=== PATIENT | male | born 2000 | race Caucasian/White ===

== ENCOUNTER 2023-06-29 10:25 | Outpatient (OUT) | payer OTHER, SELFPAY ==
--- NOTE | 2023-06-29 10:33 | XR_ITS ---
The [address] [address] Patient Name: SEAN WHITE MRN: [id number] date: 2000 Sex: M Assigned Patient Location: RAD Current Patient Location: RAD Accession/Order Number: [id number] Exam Date: 06/29/2023 10:44 Report Date: 06/29/2023 13:50 At the request of: NERY STERLING Procedure: XR lumbar spine 2-3V EXAMINATION: XR lumbar spine 2-3V, XR sacrum coccyx min 2V HISTORY: Sacrococcygeal disorders M53.3 COMPARISON: No relevant comparison available. FINDINGS: BONES: 5 mm retrolisthesis of L5 on S1. No acute fracture. No significant degenerative change DISC SPACES: Normal. No significant disc height narrowing, subluxation, or endplate abnormality. PARASPINOUS: Negative. No paraspinous abnormality is seen. OTHER: Negative. XR/XR lumbar spine 2-3V IMPRESSION: 5 mm retrolisthesis of L5 on S1 Electronically authenticated by: AILEEN PARKINSON Date: 06/29/2023 13:50
--- NOTE | 2023-06-29 10:33 | XR_ITS ---
The [address] [address] Patient Name: SEAN WHITE MRN: [id number] date: 2000 Sex: M Assigned Patient Location: RAD Current Patient Location: RAD Accession/Order Number: [id number] Exam Date: 06/29/2023 10:44 Report Date: 06/29/2023 13:50 At the request of: NERY STERLING Procedure: XR sacrum coccyx min 2V EXAMINATION: XR lumbar spine 2-3V, XR sacrum coccyx min 2V HISTORY: Sacrococcygeal disorders M53.3 COMPARISON: No relevant comparison available. FINDINGS: BONES: 5 mm retrolisthesis of L5 on S1. No acute fracture. No significant degenerative change DISC SPACES: Normal. No significant disc height narrowing, subluxation, or endplate abnormality. PARASPINOUS: Negative. No paraspinous abnormality is seen. OTHER: Negative. XR/XR sacrum coccyx min 2V IMPRESSION: 5 mm retrolisthesis of L5 on S1 Electronically authenticated by: AILEEN PARKINSON Date: 06/29/2023 13:50
== END 2023-06-29 10:26 | disposition home or self-care (01) ==
LOC: RAD 10:28
PROVIDERS: PCP Family Medicine; Visit Provider Nurse Practitioner Family
DX: M53.3 Sacrococcygeal disorders, not elsewhere classified (principal)
CPT/HCPCS: 72100; 72220

== ENCOUNTER 2023-10-17 10:10 | Emergency (ER) | payer OTHER, SELFPAY ==
[2023-10-17 10:14] VITALS: BP 123/80; PULSE 61; RESP 18; TEMP 36.7; O2SAT 97; BMI 34.7
--- NOTE | 2023-10-17 10:26 | ECG_ITS ---
The 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
--- NOTE | 2023-10-17 10:26 | XR_ITS ---
The [address] [address] Patient Name: SEAN WHITE MRN: [id number] date: 2000 Sex: M Assigned Patient Location: ER Current Patient Location: ER Accession/Order Number: [id number] Exam Date: 10/17/2023 10:40 Report Date: 10/17/2023 10:55 At the request of: LESA CANO Procedure: XR chest 1V EXAM: XR chest 1V HISTORY: CP COMPARISON: None TECHNIQUE: AP view of the chest was obtained with portable technique at 1038 hours. FINDINGS: Heart and mediastinal contours are unremarkable in appearance. No acute infiltrate or consolidations are seen. No obvious pneumothorax. Bony structures appear grossly intact. XR/XR chest 1V IMPRESSION: No acute process seen in the chest. Electronically authenticated by: CODI CLARKE Date: 10/17/2023 10:55
--- NOTE | 2023-10-17 10:27 | ED_ITS ---
HPI - Chest Pain General Chief Complaint: Chest Pain Stated Complaint: CHEST PAIN Time Seen by Provider: 10/17/23 10:12 Source: patient Mode of arrival: walk-in History of Present Illness HPI narrative: 23-year-old male presents for chest pain. It started yesterday and has been intermittent. It last for a few seconds at a time and he points to his lower sternal area at the midline. It takes his breath away doesn't ever last for more than a few seconds. No abdominal pain and vomiting or fever. He is not short of breath and has no back pain. He's been on two new medications recently, Daypro and a muscle relaxant of which he cannot recall the name. Related Data Home Medications Medication Instructions Recorded Confirmed baclofen 20 mg tablet 40 mg PO DAILY 10/17/23 10/17/23 oxaprozin 600 mg tablet 1,200 mg PO DAILY 10/17/23 10/17/23 Allergies Allergy/AdvReac Type Severity Reaction Status Date / Time No Known Drug Allergies Allergy Verified 10/17/23 10:21 Review of Systems ROS Narrative A ten point review of systems is negative except as noted above. Musculoskeletal Reports: back pain Exam Narrative Exam Narrative: Nurses note and vital signs reviewed and patient is not hypoxic. General: The patient appears well and in no apparent distress. Patient is resting comfortably on cart. Skin: Warm, dry, no pallor noted. There is no rash noted. Head: Normocephalic, atraumatic Eye: Normal conjunctiva, no drainage Ears, Nose, Mouth, and Throat: oral mucosa is moist. Nares patent. Cardiovascular: Regular Rate and Rhythm Respiratory: Patient is in no distress, no accessory muscle use, lungs are clear to auscultation, no wheezing, rales or rhonchi Back: non-tender GI: no tenderness to palpation, no masses appreciated. No rebound, guarding, or rigidity noted. Musculoskeletal: The patient has no evidence of calf tenderness, no pitting edema, symmetrical pulses noted bilaterally Neurological: A&O, normal speech Psychiatric: Cooperative Constitutional Vital Signs, click to edit/add: Last Vital Signs Temp 98.0 F 10/17/23 10:14 Pulse 61 10/17/23 10:14 Resp 18 10/17/23 10:14 BP 123/80 10/17/23 10:14 Pulse Ox 97 10/17/23 10:14 O2 Del Method Room Air 10/17/23 10:14 Course Vital Signs Vital signs: Vital Signs Temperature 98.0 F 10/17/23 10:14 Pulse Rate 61 10/17/23 10:14 Respiratory Rate 18 10/17/23 10:14 Blood Pressure 123/80 10/17/23 10:14 Pulse Oximetry 97 10/17/23 10:14 Oxygen Delivery Method Room Air 10/17/23 10:14 Temperature 98.0 F 10/17/23 10:14 Pulse Rate 61 10/17/23 10:14 Respiratory Rate 18 10/17/23 10:14 Blood Pressure 123/80 10/17/23 10:14 Pulse Oximetry 97 10/17/23 10:14 Oxygen Delivery Method Room Air 10/17/23 10:14 MDM - Chest Pain MDM Narrative Medical decision making narrative: his entire workup here is negative. The possibility that this is being caused by his new medications was discussed with him and he'll follow-up with his doctor. Treatment diagnosis and follow-up were discussed with the patient. Differential Diagnosis Differential diagnosis: Likely pneumothorax, atypical chest pain, st elevation myocardial infarction, costochondritis and chest pain Lab Data Attestation: I reviewed the patient's lab results. Labs: Lab Results 10/17/23 Range/Units 10:34 WBC 6.2 (4.0-11.0) 10^3/uL RBC 5.76 (4.70-6.10) 10^6/uL Hgb 16.2 (14.0-18.0) g/dL Hct 48.9 (42.0-54.0) % MCV 84.9 (80.0-94.0) fL MCH 28.1 (25.9-34.0) pg MCHC 33.1 (29.9-35.2) g/dL RDW 12.0 (11.0-15.0) % Plt Count 199 (150-450) 10^3/uL MPV 10.9 (9.5-13.5) fL Neut % (Auto) 59.0 (43.0-75.0) % Lymph % (Auto) 34.4 (20.5-60.0) % [place] % (Auto) 5.3 (1.7-12.0) % Eos % (Auto) 1.0 (0.9-7.0) % Baso % (Auto) 0.3 (0.2-2.0) % Neut # (Auto) 3.6 (1.4-6.5) 10^3/uL Lymph # (Auto) 2.1 (1.2-3.8) 10^3/uL [place] # (Auto) 0.3 (0.3-0.8) 10^3/uL Eos # (Auto) 0.1 (0.0-0.7) 10^3/uL Baso # (Auto) 0.0 (0.0-0.1) 10^3/uL Abs Immat Gran (auto) 0.00 (0.00-0.03) 10^3/uL Imm/Tot Granulo (auto) 0.0 (0.0-0.5) % Sodium 141 (136-145) mmol/L Potassium 3.9 (3.5-5.1) mmol/L Chloride 103 (98-107) mmol/L Carbon Dioxide 26.4 (21.0-32.0) mmol/L Anion Gap 15.5 BUN 18.0 (7.0-18.0) mg/dL Creatinine 0.89 (0.70-1.30) mg/dL Est GFR ( Amer) >60 (>=60) Est GFR (Non-Af Amer) >60 (>=60) BUN/Creatinine Ratio 20.2 Glucose 102 (74-106) mg/dL Calcium 9.2 (8.5-10.1) mg/dL Total Bilirubin 0.6 (0.2-1.0) mg/dL Direct Bilirubin 0.1 (0.0-0.2) mg/dL AST 27 (15-37) U/L ALT 59 (16-63) U/L Alkaline Phosphatase 48 (46-116) U/L Troponin I High Sens 5.4 (4.0-76.1) pg/mL Total Protein 8.2 (6.4-8.2) g/dL Albumin 4.4 (3.4-5.0) g/dL Globulin 3.8 g/dL Albumin/Globulin Ratio 1.2 Amylase 41 (25-115) U/L Lipase 32.0 (16.0-77.0) U/L Imaging Data Chest x-ray: Radiologist's impression: Procedure: XR chest 1V EXAM: XR chest 1V HISTORY: CP COMPARISON: None TECHNIQUE: AP view of the chest was obtained with portable technique at 1038 hours. FINDINGS: Heart and mediastinal contours are unremarkable in appearance. No acute infiltrate or consolidations are seen. No obvious pneumothorax. Bony structures appear grossly intact. IMPRESSION: No acute process seen in the chest. Electronically authenticated by: CODI CLARKE Date: 10/17/2023 10:55 ECG Data Attestation: I personally reviewed and interpreted this ECG as follows: (EKG on my interpretation shows no acute findings, normal sinus rhythm, and a rate of 58.) Heart Score History: Slightly/Non-Suspicious ECG: Normal Age: <45 years Risk Factors: No Risk Factors Troponin: <Normal Limit Total Heart Score Recommendations & Risks:: 0 Discharge Plan Discharge Chief Complaint: Chest Pain Clinical Impression: Chest pain Patient Disposition: Home, Self-Care Time of Disposition Decision: 11:06 Condition: Good Mode of Transportation: Private Vehicle Prescriptions / Home Meds: No Action baclofen 20 mg tablet 40 mg PO DAILY oxaprozin 600 mg tablet 1,200 mg PO DAILY Instructions: Chest Pain (ED) Stand Alone Forms: Portal Instructions Referrals: Andrea Anthony MD [Primary Care Provider] - 1 week
[2023-10-17 10:40] LABS: Basophils Percent Auto 0.3 % (0.2-2.0); Eosinophils Absolute Auto 0.1 10^3/uL (0.0-0.7); Hematocrit 48.9 % (42.0-54.0); Hemoglobin 16.2 g/dL (14.0-18.0); Lymphocytes Absolute Auto 2.1 10^3/uL (1.2-3.8); Lymphocytes Percent Auto 34.4 % (20.5-60.0); Mean Corpuscular HGB Conc 33.1 g/dL (29.9-35.2); Mean Corpuscular Hemoglobin 28.1 pg (25.9-34.0); Mean Corpuscular Volume 84.9 fL (80.0-94.0); Mean Platelet Volume 10.9 fL (9.5-13.5); Monocytes Absolute Auto 0.3 10^3/uL (0.3-0.8); Monocytes Percent Auto 5.3 % (1.7-12.0); Neutrophils Absolute Auto 3.6 10^3/uL (1.4-6.5); Platelet Count 199 10^3/uL (150-450); Red Blood Count 5.76 10^6/uL (4.70-6.10); White Blood Count 6.2 10^3/uL (4.0-11.0)
[2023-10-17 10:50] LABS: Anion Gap 15.5; BUN Creatinine Ratio 20.2; Calcium 9.2 mg/dL (8.5-10.1); Carbon Dioxide 26.4 mmol/L (21.0-32.0); Chloride 103 mmol/L (98-107); Estimated GFR (African America >60 (>=60); Estimated GFR (Non-African Ame >60 (>=60); Glucose 102 mg/dL (74-106); Potassium 3.9 mmol/L (3.5-5.1); Sodium 141 mmol/L (136-145)
[2023-10-17 10:58] LABS: Alanine Aminotransferase 59 U/L (16-63); Albumin Globulin Ratio 1.2; Albumin Level 4.4 g/dL (3.4-5.0); Alkaline Phosphatase 48 U/L (46-116); Amylase 41 U/L (25-115); Aspartate Amino Transferase 27 U/L (15-37); Bilirubin Direct 0.1 mg/dL (0.0-0.2); Bilirubin Total 0.6 mg/dL (0.2-1.0); Globulin 3.8 g/dL; Total Protein 8.2 g/dL (6.4-8.2); Troponin I High Sensitivity 5.4 pg/mL (4.0-76.1)
== END 2023-10-17 11:15 | disposition home or self-care (01) ==
PROVIDERS: Emergency Provider Emergency Medicine; PCP Family Medicine
DX: R07.9 Chest pain, unspecified (principal)
CPT/HCPCS: 36415; 71045; 80048; 80076; 82150; 83690; 84484; 85025; 93005; 99285

== ENCOUNTER 2024-04-30 11:57 | Outpatient (OUT) | payer OTHER, SELFPAY ==
--- NOTE | 2024-04-30 12:04 | XR_ITS ---
[address] [address] Patient Name: SEAN WHITE MRN: [id number] date: 2000 Sex: M Assigned Patient Location: [facility] Current Patient Location: Accession/Order Number: [id number] Exam Date: 04/30/2024 12:07 Report Date: 05/01/2024 10:19 At the request of: OZZIE BURLESON Procedure: XR lumbar spine 2-3V EXAMINATION: XR lumbar spine 2-3V HISTORY: Lumbar Radiculopathy M54.16 COMPARISON: No relevant comparison available. FINDINGS: BONES: Mild left convex curvature lumbar spine and slight reversal of normal lordotic curvature. No fracture, spondylolisthesis, bone lesion. No significant facet arthropathy. DISC SPACES: Slight narrowing L4-5, L5-S1. PARASPINOUS: Negative. No paraspinous abnormality is seen. OTHER: Negative. XR/XR lumbar spine 2-3V IMPRESSION: 1. Mild degenerative disc disease of lower lumbar spine. 2. Abnormal curvature of lumbar spine of uncertain etiology; possibly due to muscle spasm. Electronically authenticated by: CHRISTY CRAWFORD Date: 05/01/2024 10:19
== END 2024-04-30 11:58 | disposition home or self-care (01) ==
LOC: RAD 12:00
PROVIDERS: PCP Family Medicine; Visit Provider Family Medicine
DX: M54.16 Radiculopathy, lumbar region (principal); M51.36 Other intervertebral disc degeneration, lumbar region
CPT/HCPCS: 72100

== ENCOUNTER 2025-03-24 15:55 | Emergency (ER) | payer SELFPAY ==
[2025-03-24 15:59] VITALS: BP 141/72; PULSE 81; TEMP 36.6; O2SAT 98; BMI 32.6
--- NOTE | 2025-03-24 16:20 | ED.GENADUL1 ---
HPI HPI - General Adult General Chief complaint: Abdominal Pain Stated complaint: PAIN IN STOMACH Time Seen by Provider: 03/24/25 16:10 Source: patient Mode of arrival: walk-in Limitations: no limitations History of Present Illness HPI narrative: 24-year-old male presents to the emergency department for epigastric and left upper quadrant pain. He has had it for 2 days. No injury or fever. No vomiting but has had some diarrhea without blood in it. He has never had pain like this before and he is worried about his gallbladder. The pain is mild to moderate. Related Data Home Medications ?Medication ?Instructions ?Recorded ?Confirmed omeprazole 40 mg capsule,delayed 40 mg PO DAILY 03/24/25 03/24/25 release Allergies Allergy/AdvReac Type Severity Reaction Status Date / Time No Known Drug Allergies Allergy Verified 10/17/23 10:21 Opioid HPI Opioid Management Most Recent Opioid Data: Last Pain Scale 9 Today, 16:41 Review of Systems ROS Narrative A ten point review of systems is negative except as noted above. PFSH PFSH Social History Little interest or pleasure in doing things: not at all Feeling down, depressed, or hopeless: not at all Exam Narrative Exam Narrative: Nurses note and vital signs reviewed and patient is not hypoxic. General: The patient appears well and in no apparent distress. Patient is resting comfortably on cart. Skin: Warm, dry, no pallor noted. There is no rash noted. Head: Normocephalic, atraumatic Eye: Normal conjunctiva, no drainage Ears, Nose, Mouth, and Throat: oral mucosa is moist. Nares patent. Cardiovascular: Regular Rate and Rhythm Respiratory: Patient is in no distress, no accessory muscle use, lungs are clear to auscultation, no wheezing, rales or rhonchi Back: non-tender GI: Patient has mild tenderness in the epigastric area in the left upper quadrant. No tenderness elsewhere. No masses. No rebound or guarding. Musculoskeletal: The patient has no evidence of calf tenderness, no pitting edema, symmetrical pulses noted bilaterally Neurological: A&O, normal speech Psychiatric: Cooperative Constitutional Vital Signs, click to edit/add: Last Vital Signs Temp 97.9 F 03/24/25 15:59 Pulse 81 03/24/25 15:59 Resp 18 03/24/25 15:59 BP 141/72 03/24/25 15:59 Pulse Ox 98 03/24/25 15:59 O2 Del Method Room Air 03/24/25 15:59 Course Vital Signs Vital signs: Vital Signs Temperature 97.9 F 03/24/25 15:59 Pulse Rate 81 03/24/25 15:59 Respiratory Rate 18 03/24/25 15:59 Blood Pressure 141/72 03/24/25 15:59 Pulse Oximetry 98 03/24/25 15:59 Oxygen Delivery Method Room Air 03/24/25 15:59 Temperature 97.9 F 03/24/25 15:59 Pulse Rate 81 03/24/25 15:59 Respiratory Rate 18 03/24/25 15:59 Blood Pressure 141/72 03/24/25 15:59 Pulse Oximetry 98 03/24/25 15:59 Oxygen Delivery Method Room Air 03/24/25 15:59 Medical Decision Making MDM Narrative Medical decision making narrative: His workup including CT of the abdomen is negative. He will be discharged home and will follow-up with his physician if symptoms persist. Treatment diagnosis and follow-up were discussed with the patient. Differential Diagnosis Differential Diagnosis: Gallbladder disease, colitis, diverticulitis, constipation, pancreatitis Lab Data Lab results reviewed: Yes I reviewed the patient's lab results Labs: Lab Results 03/24/25 Range/Units 16:25 WBC 6.8 (4.0-11.0) 10^3/uL RBC 5.48 (4.70-6.10) 10^6/uL Hgb 15.7 (14.0-18.0) g/dL Hct 45.2 (42.0-54.0) % MCV 82.5 (80.0-94.0) fL MCH 28.6 (25.9-34.0) pg MCHC 34.7 (29.9-35.2) g/dL RDW 11.8 (11.0-15.0) % Plt Count 200 (150-450) 10^3/uL MPV 10.5 (9.5-13.5) fL Neut % (Auto) 61.3 (43.0-75.0) % Lymph % (Auto) 31.8 (20.5-60.0) % [place] % (Auto) 5.9 (1.7-12.0) % Eos % (Auto) 0.6 L (0.9-7.0) % Baso % (Auto) 0.3 (0.2-2.0) % Neut # (Auto) 4.2 (1.4-6.5) 10^3/uL Lymph # (Auto) 2.2 (1.2-3.8) 10^3/uL [place] # (Auto) 0.4 (0.3-0.8) 10^3/uL Eos # (Auto) 0.0 (0.0-0.7) 10^3/uL Baso # (Auto) 0.0 (0.0-0.1) 10^3/uL Abs Immat Gran (auto) 0.01 (0.00-0.03) 10^3/uL Imm/Tot Granulo (auto) 0.1 (0.0-0.5) % Sodium 136 (136-145) mmol/L Potassium 3.7 (3.5-5.1) mmol/L Chloride 100 (98-107) mmol/L Carbon Dioxide 27.6 (21.0-32.0) mmol/L Anion Gap 12.1 BUN 16.0 (7.0-18.0) mg/dL Creatinine 0.93 (0.70-1.30) mg/dL Est GFR ( Amer) >60 (>=60 mL/min/1.73m^2) Est GFR (Non-Af Amer) >60 (>=60 mL/min/1.73m^2) BUN/Creatinine Ratio 17.2 Glucose 93 (74-106) mg/dL Calcium 9.4 (8.5-10.1) mg/dL Total Bilirubin 0.8 (0.2-1.0) mg/dL Direct Bilirubin 0.2 (0.0-0.2) mg/dL AST 38 H (15-37) U/L ALT 91 H (16-63) U/L Alkaline Phosphatase 50 (46-116) U/L Total Protein 7.9 (6.4-8.2) g/dL Albumin 4.4 (3.4-5.0) g/dL Globulin 3.5 g/dL Albumin/Globulin Ratio 1.3 Amylase 42 (25-115) U/L Lipase 30.0 (16.0-77.0) U/L Imaging Data CT scan - abdomen: Radiologist's impression: No acute abnormality within the abdomen and pelvis ECG Data Attestation: I personally reviewed and interpreted this ECG as follows: (EKG on my interpretation shows normal sinus rhythm with rate of 73 and no acute change) Discharge Plan Discharge Chief Complaint: Abdominal Pain Clinical Impression: Abdominal pain Patient Disposition: Home, Self-Care Time of Disposition Decision: 18:29 Condition: Good Mode of Transportation: Private Vehicle Prescriptions / Home Meds: No Action omeprazole 40 mg capsule,delayed release(DR/EC) 40 mg PO DAILY Print Language: Filipino Instructions: Abdominal Pain (ED) Referrals: Andrea Anthony MD [Primary Care Provider, Family Practice] - 1 week
--- OUTSIDE RECORDS SUMMARY | 2025-03-24 16:20 | XMS_ITS | CCD ---
Author Organization [facility] Care Team Providers Care Segment Producer Name Role Phone BENJY ., DR HORNE Admitting Unavailable HOY ., DR HORNE Attending Unavailable HOY ., DR HORNE Primary Care Unavailable HOY ., DR HORNE Consulting Unavailable ZIEBER, DR CHRISTY Jeffrey Consulting Unavailable HOY ., DR HORNE Admitting Unavailable HOY ., DR HORNE Attending Unavailable HOY ., DR HORNE Primary Care Unavailable HOY ., DR HORNE Consulting Unavailable ZIEBER, DR CHRISTY Jeffrey Consulting Unavailable Problems Active Problems Problem Classification Problem Date Documented Date Episodic/Chronic Spondylosis; intervertebral disc disorders; other back problems (1 source) Other intervertebral disc degeneration, lumbosacral region; Translations: [OTH IV DISC DEGEN LUMBOSACRAL RGN] Onset: 12-03-2022 Chronic Unclassified (3 sources) LOW BACK PAIN, UNSPECIFIED; Translations: [LOW BACK PAIN, UNSPECIFIED] Onset: 12-03-2022 Past or Other Problems Problem Classification Problem Date Documented Da te Episodic/Chronic Other acquired deformities (1 source) Other specified deforming dorsopathies, lumbar region; Translations: [OTH DEFORMING DORSOPATHIES LUMB RGN] Onset: 11-25-2022 Episodic Spondylosis; intervertebral disc disorders; other back problems (5 sources) Radiculopathy, lumbar region; Translations: [Intervertebral disc disorders with radiculopathy, lumbar region] Onset: 11-23-2022 Episodic Unclassified (1 source) LOW BACK PAIN, UNSPECIFIED; Translations: [LOW BACK PAIN, UNSPECIFIED] Onset: 11-26-2022 Results Test Name Value Interpretation Reference Range Facil ity MRI LSPINE WO CONon 11-26-19 23 MRI LSPINE WO CON EXAMINATION: MRI LSPINE WO CON HISTORY: Low back pain ; chronic lumbar pain with left leg weakness COMPARISON: No relevant comparison available. TECHNIQUE: A variety of imaging planes and parameters were utilized for visualization of suspected pathology. FINDINGS: For the purposes of numbering, sagittal T2 image # 8 extends from the T11 vertebral body superiorly to the S2 level inferiorly. PARASPINAL AREA: Normal with no visible mass. BONES: Straightening of the normal lordotic curvature. No fracture or spondylolisthesis. CORD/CAUDA EQUINA: Normal caliber, contour, and signal intensity. DISC LEVELS: 12-L1: No significant disc/facet abnormality, spinal stenosis, or foraminal stenosis. L1-L2: No significant disc/facet abnormality, spinal stenosis, or foraminal stenosis. L2-L3: No significant disc/facet abnormality, spinal stenosis, or foraminal stenosis. L3-L4: No significant disc/facet abnormality, spinal stenosis, or foraminal stenosis. L4-L5: Mild central canal and bilateral foramen narrowing. Mild diffuse disc bulging with prominent posterior annular tear. No significant disc height reduction or facet arthropathy. L5-S1: Mild central canal and left foramen narrowing. No significant right foramen narrowing. Mild diffuse disc bulging with prominent posterior disc protrusion projecting 7 mm and central canal. No significant disc height reduction or facet arthropathy. IMPRESSION: 1. L4-L5 and L5-S1 degenerative disc disease as detailed above, likely account for patient's symptoms. Electronically authenticated by: CHRISTY CRAWFORD Date: 2022-11-26 16:38 Normal [facility] XR LSPINE MIN 4 VIEWSon 11-14 XR LSPINE MIN 4 VIEWS EXAMINATION: XR LSPINE MIN 4 VIEWS HISTORY: Lumbar radiculopathy ; chronic lumbar pain radiating into hips COMPARISON: No relevant comparison available. FINDINGS: BONES: Slight left convex curvature lumbar spine which appears reduced to mild lateral wedging of L5 vertebral body. Straightening of lumbar spine in the lateral projection with complete loss of normal lordotic curvature. Mild grade 1 retrolisthesis of L5 on S1. No fracture or facet joint disruption. DISC SPACES: Mild narrowing L4-5. Mild-moderate narrowing L5-S1. PARASPINOUS: Negative. No paraspinous abnormality is seen. OTHER: Negative. IMPRESSION: 1. Mild-moderate degenerative disc disease of lower lumbar spine. 2. Complete loss of normal lordotic curvature and development of mild left convex curvature which appears to be due to mild lateral wedging of L5. 3. Consider MRI of lumbar spine for further evaluation. Electronically authenticated by: CHRISTY CRAWFORD Date: 2022-11-23 09:12 Normal [facility] Encounters Encounter Date Encounter Type Care Provider Facility Start: 11-26-2022 End: 11-27-[address] OZZIE BURLESON . Facility: Start: 11-23-2022 End: 11-24-[address] OZZIE BURLESON . Facility:[facility] Payers Date Payer Category Payer Unknown [id number] 2000 Unknown [id number] 1961 Private Health Insurance [id number] Clinical Note 11-26-2022 Note Date & Type Note Facility 11-26-2022 Note EXAMINATION: XR FORE IGN BODY EYE HISTORY: Foreign body in eye ; pre-MRI evaluation COMPARISON: No relevant comparison available. FINDINGS: ORBITS: Negative for a metallic foreign body. OTHER: Negative. IMPRESSION: 1. No metallic foreign body within the orbits. Electronically authenticated by: CHRISTY CRAWFORD Date: 2022-11-26 13:44 [facility] Clinical Note 11-23-2022 Note Date & Type Note Facility 11-23-2022 Note PROCEDURE: XR HIPS B IL 5V W PELVIS HISTORY: Lumbar radiculopathy ; chronic lumbar pain radiating into hips; no known injury COMPARISON: None. FINDINGS: BONES:No fracture, acute abnormality, or significant arthropathy. SOFT TISSUES:No visible soft tissue swelling. EFFUSION:None visible. OTHER: Negative. IMPRESSION: 1. No acute bone abnormality or lesion. 2. No significant degenerative joint disease. Electronically authenticated by: CHRISTY CARWFORD Date: 2022-11-23 09:08 [facility] Summary Purpose Family History No Family History Records Found Advance Directives No Advanced Directives Records Found Additional Source Comments (unrecognized sect ion and content) No Status Records Found INFORMATION SOURCE (unrecogn ized section and content) DATE CREATED AUTHOR 03/09/2023 The [facility] FOR RECORDS PERTAINING TO PATIENTS WHO ARE OR HAVE BEEN ENROLLED IN A CHEMICAL DEPENDENCY/SUBSTANCEABUSE PROGRAM, SOME INFORMATION MAY BE OMITTED. This clinical summary was aggregated from multiple sources. Caution should be exercised in using it in the provision of clinical care. This summary normalizes information from multiple sources, and as a consequence, information in this document may materially change the coding, format and clinical context of patient data. In addition, data may be omitted in some cases. CLINICAL DECISIONS SHOULD BE BASED ON THE PRIMARY CLINICAL RECORDS. [facility]. provides no warranty or guarantee of the accuracy or completeness of information in this document.
[2025-03-24 16:35] LABS: Basophils Percent Auto 0.3 % (0.2-2.0); Eosinophils Percent Auto 0.6 % (0.9-7.0); Hematocrit 45.2 % (42.0-54.0); Hemoglobin 15.7 g/dL (14.0-18.0); Immature Granulocytes Abs Auto 0.01 10^3/uL (0.00-0.03); Immature Granulocytes Pct Auto 0.1 % (0.0-0.5); Lymphocytes Absolute Auto 2.2 10^3/uL (1.2-3.8); Lymphocytes Percent Auto 31.8 % (20.5-60.0); Mean Corpuscular HGB Conc 34.7 g/dL (29.9-35.2); Mean Corpuscular Hemoglobin 28.6 pg (25.9-34.0); Mean Corpuscular Volume 82.5 fL (80.0-94.0); Mean Platelet Volume 10.5 fL (9.5-13.5); Monocytes Absolute Auto 0.4 10^3/uL (0.3-0.8); Monocytes Percent Auto 5.9 % (1.7-12.0); Neutrophils Absolute Auto 4.2 10^3/uL (1.4-6.5); Neutrophils Percent Auto 61.3 % (43.0-75.0); Platelet Count 200 10^3/uL (150-450); Red Blood Count 5.48 10^6/uL (4.70-6.10); Red Cell Distribution Width 11.8 % (11.0-15.0); White Blood Count 6.8 10^3/uL (4.0-11.0)
[2025-03-24 16:53] LABS: Alanine Aminotransferase 91 U/L (16-63); Albumin Globulin Ratio 1.3; Albumin Level 4.4 g/dL (3.4-5.0); Alkaline Phosphatase 50 U/L (46-116); Amylase 42 U/L (25-115); Anion Gap 12.1; Aspartate Amino Transferase 38 U/L (15-37); BUN Creatinine Ratio 17.2; Bilirubin Direct 0.2 mg/dL (0.0-0.2); Bilirubin Total 0.8 mg/dL (0.2-1.0); Calcium 9.4 mg/dL (8.5-10.1); Carbon Dioxide 27.6 mmol/L (21.0-32.0); Chloride 100 mmol/L (98-107); Estimated GFR (African America >60 (>=60 mL/min/1.73m^2); Estimated GFR (Non-African Ame >60 (>=60 mL/min/1.73m^2); Globulin 3.5 g/dL; Glucose 93 mg/dL (74-106); Potassium 3.7 mmol/L (3.5-5.1); Sodium 136 mmol/L (136-145); Total Protein 7.9 g/dL (6.4-8.2)
--- NOTE | 2025-03-24 18:10 | ECG_ITS ---
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 Measurements Intervals [place] Rate: 73 P: 36 [place]: 166 QRS: 71 QRSD: 104 T: 50 QT: 392 QTc: 418 Interpretive Statements 1100 Sinus rhythm 9110 normal ECG Compared to ECG 10/17/2023 10:26:09 No significant changes Electronically Signed On 03-24-2025 23:02:25 EDT by MANUEL PRITCHETT M.D.
[2025-03-24] MEDS: KETOROLAC TROMETHAMINE 30 MG/ML VIAL IVP (18:33)
== END 2025-03-24 18:37 | disposition home or self-care (01) ==
PROVIDERS: Emergency Provider Emergency Medicine; PCP Family Medicine
DX: R10.12 Left upper quadrant pain (principal); R10.13 Epigastric pain
CPT/HCPCS: 36415; 74177; 80048; 80076; 82150; 83690; 85025; 93005; 96374; 99285; J1885; Q9967